=== PATIENT | female | born 1955 | race Caucasian/White ===

== ENCOUNTER 2017-09-20 18:46 | Emergency (ER) | payer OTHER ==
[2017-09-20] MEDS ORDERED: NORCO 5/325 MG PO ONE (20:41)
[2017-09-20] MEDS ORDERED: NORCO 5/325 MG ONE (20:45)
--- NOTE | 2017-09-20 20:47 | ERPHSYRPT ---
- History of Present Illness Time Seen by Provider: 09/20/17 20:35 Source: patient Exam Limitations: no limitations Patient Subjective Stated Complaint: Left ankle pain after falling in yard. Triage Nursing Assessment: Pt presents to the ED with complaints of left ankle pain after falling. Pt states she fell on a brick in her yard, swelling noted to lateral portion of left ankle. Pt states she iced affected area immediately. Distal pulses present and bounding. Abrasion noted to right knee and right lower leg, pt denies pain to right leg. Physician History: ABOUT 6 HOURS AGO IN HER [id number] PT TRIPPED ON A STONE AND FELL WITH RESULTANT PAIN IN THE LEFT ANKLE AND RIGHT LEG. PT DENIES NUMBNESS OF THE FEET, BACK PAIN, NECK PAIN, CHEST PAIN, ABDOMINAL PAIN. Allergies/Adverse Reactions: metronidazole [From Flagyl] Allergy (Intermediate, Verified 09/20/17 19:52) Hives Home Medications: Alprazolam 1 mg [Xanax 1 mg] 1 mg PO BID 09/20/17 [History] Aspirin 81 gm Chew [Baby Aspirin 81 mg Chew] 81 mg PO DAILY 09/20/17 [ History] Atorvastatin Calcium [Atorvastatin Calcium] 40 mg PO DAILY 09/20/17 [History] Doxepin HCl [Doxepin HCl] 10 mg PO DAILY 09/20/17 [History] Levothyroxine Sodium [Levothyroxine Sodium] 50 mcg PO DAILY 09/20/17 [History] Lisinopril [Lisinopril] 10 mg PO DAILY 09/20/17 [History] Metoprolol Succinate [Metoprolol Succinate] 25 mg PO DAILY 09/20/17 [History] Omeprazole 40 mg PO BID 09/20/17 [History] Paroxetine HCl [Paroxetine HCl] 30 mg PO DAILY 09/20/17 [History] Hx Tetanus, Diphtheria Vaccination/Date Given: No Hx Influenza Vaccination/Date Given: Yes Hx Pneumococcal Vaccination/Date Given: No Immunizations Up to Date: No - Review of Systems Cardiac: No Chest Pain Abdominal/Gastrointestinal: No Abdominal Pain Musculoskeletal: Other (LEFT ANKLE PAIN; RIGHT LEG PAIN.), No Back Pain, No Neck Pain All Other Systems: Reviewed and Negative - Past Medical History Pertinent Past Medical History: Yes Neurological History: No Pertinent History ENT History: No Pertinent History Cardiac History: Coronary Artery Disease, Hypertension Respiratory History: No Pertinent History Endocrine Medical History: No Pertinent History Musculoskeletal History: Degenerative Disk Disease GI Medical History: No Pertinent History History: No Pertinent History Psycho-Social History: Anxiety, Depression, Panic Disorder Other Medical History: Sciatica, Insomnia - Past Surgical History Past Surgical History: Yes Neuro Surgical History: Neurological Surgery Cardiac: No Pertinent History Respiratory: No Pertinent History Gastrointestinal: Hemorrhoidectomy Genitourinary: No Pertinent History Musculoskeletal: No Pertinent History Female Surgical History: Hysterectomy, Tubal Ligation Other Surgical History: Sinus surgery x4 - Social History Smoking Status: Never smoker Exposure to second hand smoke: Yes Drug Use: none Patient Lives Alone: No - Female History Hx Now: No - Nursing Vital Signs Nursing Vital Signs: Initial Vital Signs Temperature 98.5 F 09/20/17 19:42 Pulse Rate 92 H 09/20/17 19:42 Respiratory Rate 16 09/20/17 19:42 Blood Pressure 156/90 09/20/17 19:42 O2 Sat by Pulse Oximetry 96 09/20/17 19:42 Pain Scale Pain Intensity 0 - Kathleen Coma Score Best Eye Response ([place]): (4) open spontaneously Best Verbal Response ([place]): (5) oriented Best Motor Response ([place]): (6) obeys commands Kathleen Total: 15 - Physical Exam General Appearance: alert Head Injury: no evidence of injury Eye Exam: PERRL/EOMI ENT Exam: airway nml, nml ext.inspection, hearing grossly normal Neck Exam: trachea midline, full range of motion, No tenderness Respiratory/Chest Exam: normal breath sounds Cardiovascular Exam: normal heart sounds Gastrointestinal Exam: soft, normal bowel sounds Back Exam: normal range of motion, No vertebral tenderness Extremity Exam: normal range of motion, swelling ( LEFT ANKLE LATERALLY HAS MILD EDEMA AND TENDERNESS; ALL TOES OF BOTH FEET HAVE GOOD SENSATION, ROM AND CAPILLARY REFILL.) Neurologic Exam: alert, cooperative, sensation nml, No motor deficits, No motor weakness Skin Exam: abrasion (MILD TENDERNESS OVER ABRASIONS ON PROXIMAL LEFT QUIROZ) SpO2 Interpretation: normal SpO2: 96 Oxygen Delivery: Room Air - Course Nursing assessment & vital signs reviewed: Yes - Radiology Exams Left Ankle X-ray Interpretation: Teleradiologist Report (STS. NO FRACTURE.) Right Lower Leg X-ray Interpretation: Teleradiologist Report, No Fracture Ordered Tests: Active Orders 24 hr Category Date Time Status Saul Bandage Application -[facility] STAT Care 09/20/17 20:41 Active Crutches STAT Care 09/20/17 20:41 Active ANKLE (3 VIEWS) Stat Exams 09/20/17 20:42 Taken LOWER LEG Stat Exams 09/20/17 20:42 Taken Medication Summary Discontinued Medications Generic Name Dose Route Start Last Admin Trade Name Freq PRN Reason Stop Dose Admin Hydrocodone Bitart/Acetaminophen 1 tab 09/20/17 20:41 09/20/17 20:45 [place] 5/325 Mg PO 09/20/17 20:42 1 tab STAT ONE Administration Hydrocodone Bitart/Acetaminophen Confirm 09/20/17 20:45 [place] 5/325 Mg Administered 09/20/17 20:46 Dose 1 tab .ROUTE .STK-MED ONE - Departure Time of Disposition: 02:25 Departure Disposition: Home Clinical Impression: ABRASION/CONTUSION OF RIGHT LEG, SPRAIN OF LEFT ANKLE Condition: Stable Critical Care Time: No Referrals: LOKI SPRINGER MD [Primary Care Provider] - Instructions: Ankle Sprain Additional Instructions: FOLLOW UP WITH PRIVATE DOCTOR TOMORROW. ELEVATE LEFT ANKLE ABOVE HEART LEVEL FOR 24 HOURS. SAUL WRAP TO LEFT ANKLE FOR 4 DAYS. NO WEIGHT BEARING ON LEFT FOOT FOR 4 DAYS. USE CRUTCHES FOR 2 WEEKS. Prescriptions: Naproxen [Naprosyn] 500 mg PO [id number] PRN #20 tablet PRN Reason: Pain
[2017-09-21 02:42] VITALS: BP 118/81; PULSE 80; O2SAT 98
--- NOTE | 2017-09-21 09:46 | XRAY ---
Indication: Pain and swelling following fall. Comparison: None 3 views of the left ankle obtained demonstrates anterior lateral soft tissue swelling and small plantar heel spur. No bony, articular, or soft tissue abnormalities. Comment: Preliminary interpretation was made by [facility]. No discrepancy.
--- NOTE | 2017-09-21 09:46 | XRAY ---
Indication: Pain and swelling following fall. Comparison: None 2 views of the right lower leg obtained. No bony, articular, or soft tissue abnormalities. Comment: Preliminary interpretation was made by [facility]. No discrepancy.
== END 2017-09-21 02:41 | disposition home or self-care (01) ==
LOC: ED 18:46
DX: S93.402A Sprain of unspecified ligament of left ankle, initial encounter (principal); M25.572 Pain in left ankle and joints of left foot; S80.11XA Contusion of right lower leg, initial encounter; W01.0XXA Fall on same level from slipping, tripping and stumbling without subsequent striking against object, initial encounter; Z79.899 Other long term (current) drug therapy
CPT/HCPCS: 73590; 73610; 99282; A9270-GY

== ENCOUNTER 2021-11-27 01:04 | Emergency (ER) | payer MEDICARE ==
[2021-11-27] MEDS ORDERED: SUBLIMAZE 100 MCG/2 ML IV ONE (01:29)
[2021-11-27] MEDS ORDERED: Sodium Chloride 0.9% 1000 ML 1,000 ML IV STA (01:29)
[2021-11-27] MEDS ORDERED: TORAdol 30 mg Injection IV ONE (01:32)
--- NOTE | 2021-11-27 01:33 | ERPHSYRPT ---
- History of Present Illness Time Seen by Provider: 11/27/21 01:30 Historian: patient Exam Limitations: no limitations Patient Subjective Stated Complaint: pt states "I was watching TV and this pain just started out of no where. I had a scan 3 years ago and was told I had kidney stones in my kidney." Triage Nursing Assessment: pt ambulated into the er; pt is axo x4; c/o rt flank pain; pt states 8/10 pain to rt flank region; pt states "pressure in vagina"; pt c/o nausea; abd is round, soft, non tender; hyperactive bowel sounds; pt states diarrhea but has hx of IBS; hypertensive Physician History: pt states "I was watching TV and this pain just started out of no where. I had a scan 3 years ago and was told I had kidney stones in my kidney." c/o rt flank pain; pt states 8/10 pain to rt flank region; pt states "pressure in vagina"; pt c/o nausea; Timing/Duration: today Activities at Onset: none Quality: cramping Abdominal Pain Onset Location: RLQ, flank Severity of Pain-Max: moderate Severity of Pain-Current: moderate Modifying Factors: Improves With: nothing Associated Symptoms: nausea Allergies/Adverse Reactions: metronidazole [From Flagyl] Allergy (Intermediate, Verified 11/27/21 01:11) Hives Home Medications: ALPRAZolam 1 MG [Xanax 1 mg] 0.5 mg PO BID 09/20/17 [History] Levothyroxine Sodium 50 mcg PO DAILY 09/20/17 [History] Metoprolol Succinate 25 mg PO DAILY 09/20/17 [History] Omeprazole 40 mg PO DAILY 09/20/17 [History] PARoxetine HCL [Paroxetine HCl] 20 mg PO DAILY 09/20/17 [History] Amlodipine Besylate [Norvasc] 2.5 mg PO DAILY 11/27/21 [History] Buspirone HCl 5 mg [Buspar 5 mg] 10 mg PO TID 11/27/21 [History] Cholecalciferol (Vitamin D3) [Vitamin D3] 2,000 mcg PO DAILY 11/27/21 [History] Loratadine 10 mg [Claritin 10 mg] 10 mg PO DAILY 11/27/21 [History] Valsartan 80 mg PO DAILY 11/27/21 [History] Hx Tetanus, Diphtheria Vaccination/Date Given: No Hx Influenza Vaccination/Date Given: Yes Hx Pneumococcal Vaccination/Date Given: No Travel Risk - International Travel Have you traveled outside of the country in past 3 weeks: No - Coronavirus Screening Are you exhibiting any of the following symptoms?: No Close contact with a COVID-19 positive Pt in past 14-21 Days: No - Vaccine Status Have you recieved a Covid-19 vaccination: Yes Commodity Management Specialist: Moderna - Vaccination Dates Date of 2cond Vaccination (if applicable): unknown - Review of Systems Constitutional: No Fever, No Chills Eyes: No Symptoms Ears, Nose, & Throat: No Symptoms Respiratory: No Cough, No Dyspnea Cardiac: No Chest Pain, No Edema, No Syncope Abdominal/Gastrointestinal: No Abdominal Pain, No Nausea, No Vomiting, No Diarrhea Genitourinary Symptoms: Flank Pain, No Dysuria Musculoskeletal: No Back Pain, No Neck Pain Skin: No Rash Neurological: No Dizziness, No Focal Weakness, No Sensory Changes Psychological: No Symptoms Endocrine: No Symptoms All Other Systems: Reviewed and Negative - Past Medical History Pertinent Past Medical History: Yes Neurological History: No Pertinent History ENT History: No Pertinent History Cardiac History: Coronary Artery Disease, Hypertension Respiratory History: No Pertinent History Endocrine Medical History: No Pertinent History Musculoskeletal History: Degenerative Disk Disease GI Medical History: No Pertinent History History: No Pertinent History Psycho-Social History: Anxiety, Depression, Panic Disorder Female Reproductive Disorders: No Pertinent History Other Medical History: Sciatica, Insomnia - Past Surgical History Past Surgical History: Yes Neuro Surgical History: Neurological Surgery Cardiac: No Pertinent History Respiratory: No Pertinent History Gastrointestinal: Hemorrhoidectomy Genitourinary: No Pertinent History Musculoskeletal: No Pertinent History Female Surgical History: Hysterectomy, Tubal Ligation Other Surgical History: Sinus surgery x4 - Social History Smoking Status: Never smoker Exposure to second hand smoke: Yes Drug Use: none Patient Lives Alone: No - Nursing Vital Signs Nursing Vital Signs: Initial Vital Signs Temperature 97 F 11/27/21 01:11 Pulse Rate 76 11/27/21 01:11 Respiratory Rate 16 11/27/21 01:11 Blood Pressure 165/82 11/27/21 01:11 O2 Sat by Pulse Oximetry 97 11/27/21 01:11 Pain Scale Pain Intensity 2 - Physical Exam General Appearance: no apparent distress, alert Eye Exam: PERRL/EOMI, eyes nml inspection Ears, Nose, Throat Exam: normal ENT inspection, pharynx normal, moist mucous membranes Neck Exam: normal inspection, non-tender, supple, full range of motion Respiratory Exam: normal breath sounds, lungs clear, No respiratory distress Cardiovascular Exam: regular rate/rhythm, normal heart sounds Gastrointestinal/Abdomen Exam: soft, tenderness (RLQ), No mass Back Exam: normal inspection, normal range of motion, No CVA tenderness, No vertebral tenderness Extremity Exam: normal inspection, normal range of motion, pelvis stable Neurologic Exam: alert, oriented x 3, cooperative, normal mood/affect, nml cerebellar function, sensation nml, No motor deficits Skin Exam: normal color, warm, dry SpO2: 97 - Course Nursing assessment & vital signs reviewed: Yes - CT Exams Abdomen/Pelvis CT Interpretation: Tele-radiologist Report (2 mm UVJ stone) Ordered Tests: Active Orders 24 hr Category Date Time Status ABDOMEN AND PELVIS W/0 CONTRAS [CT] Stat Exams 11/27/21 01:29 Taken CBC W DIFF Stat Lab 11/27/21 01:45 Completed CMP Stat Lab 11/27/21 01:45 Completed UA W/RFX CULTURE Stat Lab 11/27/21 03:24 Ordered Medication Summary Discontinued Medications Generic Name Dose Route Start Last Admin Trade Name Juan C PRN Reason Stop Dose Admin Fentanyl Citrate 50 mcg 11/27/21 01:29 11/27/21 01:33 Fentanyl Citrate 100 Mcg/2 Ml* Vial IV 11/27/21 01:30 Not Given STAT ONE Sodium Chloride 1,000 mls @ 999 mls/hr 11/27/21 01:29 11/27/21 02:57 Sodium Chloride 0.9% 1000 Ml IV 11/27/21 02:29 Infused .Q1H1M STA Infusion Sodium Chloride Confirm 11/27/21 01:36 Sodium Chloride 0.9% 1000 Ml Administered 11/27/21 01:37 Dose 1,000 mls @ ud .ROUTE .STK-MED ONE Ketorolac Tromethamine 30 mg 11/27/21 01:32 11/27/21 01:36 Ketorolac Tromethamine 30 Mg/Ml Inj IV 11/27/21 01:33 30 mg STAT ONE Administration Ketorolac Tromethamine Confirm 11/27/21 01:35 Ketorolac Tromethamine 30 Mg/Ml Inj Administered 11/27/21 01:36 Dose 30 mg .ROUTE .STK-MED ONE Ketorolac Tromethamine Confirm 11/27/21 03:00 Ketorolac Tromethamine 10 Mg Tablet Administered 11/27/21 03:01 Dose 20 mg .ROUTE .STK-MED ONE Ketorolac Tromethamine 20 mg 11/27/21 03:15 11/27/21 03:05 Ketorolac Tromethamine 10 Mg Tablet PO 12/02/21 03:14 20 mg Q6H THOM Administration Tamsulosin HCl 0.4 mg 11/27/21 03:00 11/27/21 03:01 Tamsulosin Hcl 0.4 Mg Cap PO 11/27/21 03:01 0.4 mg STAT ONE Administration Tamsulosin HCl Confirm 11/27/21 02:59 Tamsulosin Hcl 0.4 Mg Cap Administered 11/27/21 03:00 Dose 0.4 mg .ROUTE .[facility] ONE Lab/Rad Data: Laboratory Result Diagrams 11/27/21 01:45 11/27/21 01:45 Laboratory Results 11/27/21 11/27/21 Range/Units 01:45 01:45 WBC 8.9 (4.0-10.5) x10^3/uL RBC 4.36 (4.1-5.4) x10^6/uL Hgb 13.0 (12.0-16.0) g/dL Hct 39.0 (35-47) % MCV 89.4 (78-100) fL MCH 29.8 (26-32) pg MCHC 33.3 (32-36) g/dL RDW 13.6 (11.5-14.0) % Plt Count 175 (150-450) x10^3/uL MPV 12.3 H (7.5-11.0) fL Gran % 55.5 (36.0-66.0) % Immature Gran % (Auto) 0.5 H (0.00-0.4) % Nucleat RBC Rel Count 0.0 (0.00-0.1) % Eos # (Auto) 0.25 (0-0.5) x10^3/uL Immature Gran # (Auto) 0.04 H (0.00-0.03) x10^3u/L Absolute Lymphs (auto) 2.90 (1.0-4.6) x10^3/uL Absolute Monos (auto) 0.72 (0.0-1.3) x10^3/uL Absolute Nucleated RBC 0.00 (0.00-0.01) x10^3u/L Lymphocytes % 32.8 (24.0-44.0) % Monocytes % 8.1 (0.0-12.0) % Eosinophils % 2.8 (0.00-5.0) % Basophils % 0.3 (0.0-0.4) % Absolute Granulocytes 4.91 (1.4-6.9) x10^3/uL Basophils # 0.03 (0-0.4) x10^3/uL Sodium 139 (137-145) mmol/L Potassium 3.5 (3.5-5.1) mmol/L Chloride 107 (98-107) mmol/L Carbon Dioxide 23 (22-30) mmol/L Anion Gap 13.3 (5-15) MEQ/L BUN 21 H (7-17) mg/dL Creatinine 0.70 (0.52-1.04) mg/dL Estimated GFR > 60.0 ML/MIN Glucose 134 H (74-106) mg/dL Calcium 9.2 (8.4-10.2) mg/dL Total Bilirubin 0.70 (0.2-1.3) mg/dL AST 34 (14-36) U/L ALT 31 (0-35) U/L Alkaline Phosphatase 100 (38-126) U/L Serum Total Protein 6.1 L (6.3-8.2) g/dL Albumin 3.7 (3.5-5.0) g/dL - Progress Progress: improved, pain not gone completely Counseled pt/family regarding: lab results, diagnosis, need for follow-up, rad results - Departure Departure Disposition: Home Clinical Impression: Ureteral stone with hydronephrosis, Right distal ureteral calculus Condition: Stable Critical Care Time: Yes Critical Care Time(excluding separately billable procedures): Critical 30-74 mins Referrals: LOKI SPRINGER MD [Primary Care Provider] - Follow up/PCP as directed Instructions: Kidney Stones (DC), Flank Pain Additional Instructions: Discharge/Care Plan GARRICKRADHA NICHOLAS was seen on 11/27/21 in the Emergency Room. The patient was counseled regarding Diagnosis,Lab results, Imaging studies, need for follow up and when to return to the Emergency Room. Prescriptions given: Discharge Note I have spoken with the patient and/or caregivers. I have explained the patient's condition, diagnosis and treatment plan based on the information available to me at this time. I have answered the patient's and/or caregiver's questions and addressed any concerns. The patient and/or caregivers have as good understanding of the patient's diagnosis, condition and treatment plan as can be expected at this point. The vital signs have been stable. The patient's condition is stable and appropriate for discharge from the emergency department. The patient will pursue further outpatient evaluation with the primary care physician or other designated or consulting physician as outlined in the dischar ge instructions. The patient and/or caregivers are agreeable to this plan of care and follow-up instructions have been explained in detail. The patient and/or caregivers have received these instruction. The patient/and or caregivers are aware that any significant change in condition or worsening of symptoms should prompt an immediate return to this or the closest emergency department or call 911. GARRICKRADHA NICHOLAS was seen on 11/27/21 n the Emergency Room. At that time you were treated for an emergent condition, during your visit Laboratory, Radiology and/or other procedures may have been ordered. It is very important that you follow-up with your Primary Care Physician LOKI SPRINGER within the next 24-48 hours to review your Emergency Room visit and the final results of testing that was ordered. Some test results such as Urine Cultures, Blood Cultures, and other cultures if ordered will not be finalized for 24-48 hours. If you do not have a Primary Care Provider please call the medical records department at [phone] ext [phone] to obtain a copy of your results or you may sign into our patient portal to obtain these results by visiting us @ [email or web address] and completing the following steps: 1. Click on the Patient Portal link 2. Click the Patient Self Enrollment Link to complete the enrollment form and entering your 3. Once the enrollment form is completed you will receive an email with a temporary ID and password at the email address you provided. 4. Next choose a user name and password. Your user name must be at least 4 characters long and your password must be at least 4 characters long. 5. Choose a security question from the list and provide your answer to the question. If you already have signed into the Health Portal you may access your Health Care Information 29/01 by the following steps: 1. Login to our website @ [email or web address] 2. Enter your original user name and password. FAQS The [facility] Health Portal is an online tool that contains your Lab Results, Ra diology Reports, Visit History, Discharge Instructions and Health Summary Lab and Radiology Results will not be available for 72 hours on the portal. The Portal is a secure site, passwords are encryted and URLs are re-written so they cannot be copied and pasted. You and authorized family members are the only ones who can access your Portal. Also there is a timeout feature that protects your information if you leave the Portal page open. If you have technical difficulty please use the Contact Us link on the page this will allow you to submit any questions you have regarding the Portal or you may contact the Medical Record Department at [phone] ext [phone]. Toradol 10 mg PO TID for 5 days Rx given Prescriptions: Tamsulosin HCl 0.4 mg [Flomax 0.4 MG] 0.4 mg PO DAILY #30 cap
[2021-11-27] MEDS ORDERED: TORAdol 30 mg Injection ONE (01:35)
[2021-11-27] MEDS ORDERED: Sodium Chloride 0.9% 1000 ML 1,000 ML ONE (01:36)
[2021-11-27 01:48] LABS: Absolute Neutrophil Ct (ANC) 4.91 x10^3/uL (1.4-6.9); Basophil (Absolute #) 0.03 x10^3/uL (0-0.4); Eosinophil % 2.8 % (0.00-5.0); Eosinophil (Absolute #) 0.25 x10^3/uL (0-0.5); Lymphocytes % 32.8 % (24.0-44.0); Mean Cell Volume 89.4 fL (78-100); Mean Corpuscular Hemoglobin 29.8 pg (26-32); Mean Corpuscular Hgb Concent. 33.3 g/dL (32-36); Mean Platelet Volume 12.3 fL (7.5-11.0); Monocyte (Absolute #) 0.72 x10^3/uL (0.0-1.3); Monocytes % 8.1 % (0.0-12.0); Neutrophil % 55.5 % (36.0-66.0); Platelet Count 175 x10^3/uL (150-450); Red Blood Count 4.36 x10^6/uL (4.1-5.4); Red Cell Distribution Width 13.6 % (11.5-14.0); White Blood Count 8.9 x10^3/uL (4.0-10.5)
[2021-11-27 01:58] LABS: ALBUMIN 3.7 g/dL (3.5-5.0); ALKALINE PHOSPHATASE 100 U/L (38-126); ANION GAP 13.3 MEQ/L (5-15); BLOOD UREA NITROGEN 21 mg/dL (7-17); CHLORIDE 107 mmol/L (98-107); Calcium 9.2 mg/dL (8.4-10.2); Carbon Dioxide 23 mmol/L (22-30); EST GLOMERULAR FILTRATION RATE > 60.0 ML/MIN; Glucose 134 mg/dL (74-106); Potassium 3.5 mmol/L (3.5-5.1); SGOT/AST 34 U/L (14-36); SGPT/ALT 31 U/L (0-35); SODIUM 139 mmol/L (137-145); Total Protein 6.1 g/dL (6.3-8.2)
[2021-11-27] MEDS ORDERED: Flomax 0.4 MG ONE (02:59)
[2021-11-27] MEDS ORDERED: Flomax 0.4 MG PO ONE (03:00)
[2021-11-27] MEDS ORDERED: TORAdol 10 MG TABLET ONE (03:00)
[2021-11-27] MEDS ORDERED: TORAdol 10 MG TABLET PO SCH (03:15)
[2021-11-27 03:26] VITALS: BP 136/72; PULSE 88
[2021-11-27 03:33] VITALS: O2SAT 97
[2021-11-27 04:41] LABS: Appearance CLEAR (CLEAR); Bilirubin NEGATIVE (NEGATIVE); Dipstick done @ ? MAIN LAB; Glucose NEGATIVE (NEGATIVE); Ketones NEGATIVE (NEGATIVE); Nitrite NEGATIVE (NEGATIVE); Ph 5.5 (5-6); Protein,Urine Dip TRACE (Negative); RBC LARGE Ery/ul (0-5); Specific Gravity >=1.030 (1.005-1.025); Urobilinogen 0.2 mg/dL (0-1)
[2021-11-27 04:43] LABS: Mucus SLIGHT /HPF (NEGATIVE)
[2021-11-27 04:44] LABS: RBC >101 /HPF (0-2); Urine Cultured Indicated? NO
--- NOTE | 2021-11-27 08:31 | XRAY ---
Indication: Right flank pain. History kidney stone. Multiple contiguous axial images obtained through the abdomen and pelvis without contrast. Comparison: February 07, 2010. Lung bases again demonstrates tiny right lower lobe and new lingula calcified granulomas. No infiltrate or effusion. Heart not enlarged. Noncontrasted stomach and bowel loops appear nonobstructed. Appendectomy and hysterectomy reported. New 2-3 mm distal right ureter calculus approximately 2-3 cm proximal to the UVJ. Proximal right ureter is slightly prominent along with mild hydronephrosis and minimal perinephric stranding consistent with obstructive uropathy. Additional bilateral renal punctate calculi. Remaining liver, gallbladder, pancreas, spleen, adrenal glands, kidneys, ureters, and bladder are unremarkable for noncontrast exam. Minimal aortoiliac calcifications without AAA. Osseous structures intact with mild degenerative changes throughout the spine. Impression: 1. New 2-3 mm distal right ureter calculus producing obstructive uropathy as detailed. Additional bilateral renal micro-calculi. 2. Incidental degenerative spondylosis and old granulomatous disease. Comment: Preliminary interpretation made by [facility]. No critical discrepancy.
== END 2021-11-27 03:26 | disposition home or self-care (01) ==
LOC: ED 01:04
DX: N13.2 Hydronephrosis with renal and ureteral calculous obstruction (principal); Z87.442 Personal history of urinary calculi; R10.31 Right lower quadrant pain; I10 Essential (primary) hypertension; Z79.899 Other long term (current) drug therapy
CPT/HCPCS: 36415; 74176; 80053; 81015; 85025; 96360; 96374; 99284; J1885; A9270-GY

== ENCOUNTER 2022-04-12 13:59 | Day surgery (SDC) | payer MEDICARE ==
--- NOTE | 2022-04-12 16:54 | XRAY ---
Indication: Bilateral SI joint injection. Intraoperative fluoroscopy provided for 16 seconds. 5 digital spot image submitted for interpretation images demonstrates posterior needle tip projecting over the left and right SI joints. Correlate with intraoperative findings/report.
--- NOTE | 2022-04-12 16:57 | XRAY ---
16 seconds of fluoroscopy was used in surgery for bilateral SI joint injections.
== END 2022-04-12 16:15 | disposition home or self-care (01) ==
LOC: SDC-PAIN 13:59
PROVIDERS: ATTEND Psychiatry & Neurology Pain Medicine
DX: M46.1 Sacroiliitis, not elsewhere classified (principal); Z79.899 Other long term (current) drug therapy
CPT/HCPCS: 27096; 72202; 77002; G0260

== ENCOUNTER 2023-04-11 08:32 | Day surgery (SDC) | payer MEDICARE ==
[2023-04-11] MEDS ORDERED: Sodium Chloride 0.9(Preservative Free) 10 ML IJ ONE (08:33)
[2023-04-11] MEDS ORDERED: LIDOCAINE HCL 1% 50 MG/5 ML VL PF IJ ONE (08:33)
[2023-04-11] MEDS ORDERED: Depo-Medrol 40 MG/ML IM ONE (08:33)
[2023-04-11] MEDS ORDERED: DIPRIVAN 200 MG/20 ML IV ONE (09:39)
[2023-04-11] MEDS ORDERED: Lactated Ringers 1,000 ML IV ONE (10:05)
--- NOTE | 2023-04-11 12:08 | XRAY ---
Indication: Lumbar JERRY. Intraoperative fluoroscopy provided for 14 seconds. 3 digital spot image submitted for interpretation demonstrates posterior needle tip projecting lumbosacral junction interspace. Small amount of contrast injected for needle tip placement. Correlate with intraoperative findings/report.
--- NOTE | 2023-04-11 12:12 | XRAY ---
14 seconds of fluoroscopy was used in surgery for a lumbar JERRY.
== END 2023-04-11 10:10 | disposition home or self-care (01) ==
LOC: SDC-PAIN 08:32
PROVIDERS: ATTEND Psychiatry & Neurology Pain Medicine
DX: M54.16 Radiculopathy, lumbar region (principal)
CPT/HCPCS: 62323; 72100; 77003; J1030; J2001; J2704; Q9966

== ENCOUNTER 2023-10-28 19:21 | Emergency (ER) | payer MEDICARE ==
[2023-10-28 19:48] VITALS: RESP 18; TEMP 97.9
--- NOTE | 2023-10-28 19:58 | ERPHSYRPT ---
- History of Present Illness Time Seen by Provider: 10/28/23 19:50 Historian: patient Patient Subjective Stated Complaint: LUQ pain x2 months, pt has seen PCP for this issue and was prescribed Creon for "spastic colon." but patient is not taking it d/t expense, pt has GI appt on November 11 but states she couldn't wait that long Triage Nursing Assessment: pt ambulatory to bed by self with steady gait, pt alert and oriented x3, skin pwd, pt c/o LUQ pain x2 months, pt has had BM today, pt states my stomach feels so swollen, abdomen soft and nontender Physician History: This is a 68-year-old white female patient who has had left upper quad abdominal pain for 2 months. She is being followed as an outpatient and has a gastroenterology appointment on 11/12/2023. She had been placed on Creon. She is not taking that medication because it is too expensive. 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 Patient has a history of depression, hypertension, gastroesophageal reflux disease, hypothyroidism and anxiety issues. Patient denies chest pain. Patient denies shortness of breath. Patient reports her pain to be 3 out of 10 level of intensity Timing/Duration: other (Chronic for over 2 months) Activities at Onset: none Quality: pressure Abdominal Pain Onset Location: LUQ Pain Radiation: no radiation Severity of Pain-Max: mild Severity of Pain-Current: mild Modifying Factors: Improves With: nothing Associated Symptoms: denies symptoms Previous symptoms: same symptoms as today, no recent treatment Allergies/Adverse Reactions: metronidazole [From Flagyl] Allergy (Intermediate, Verified 10/28/23 19:32) Hives cephalexin [From Keflex] Allergy (Verified 10/28/23 19:32) doxycycline Allergy (Verified 10/28/23 19:32) erythromycin base Allergy (Verified 10/28/23 19:32) morphine Allergy (Verified 10/28/23 19:32) Sulfa (Sulfonamide Antibiotics) Allergy (Verified 10/28/23 19:32) Home Medications: ALPRAZolam 1 MG [Xanax 1 mg] 0.5 mg PO BID 09/20/17 [History] Levothyroxine Sodium 50 mcg PO DAILY 09/20/17 [History] Metoprolol Succinate 25 mg PO DAILY 09/20/17 [History] Omeprazole 40 mg PO DAILY 09/20/17 [History] Amlodipine Besylate [Norvasc] 2.5 mg PO DAILY 11/27/21 [History] Cholecalciferol (Vitamin D3) [Vitamin D3] 1,000 mcg PO DAILY 11/27/21 [History] Loratadine 10 mg [Claritin 10 mg] 10 mg PO DAILY 11/27/21 [History] Valsartan 80 mg PO BID 11/27/21 [History] Atorvastatin Calcium [Lipitor 40Mg] 40 mg PO HS 10/28/23 [History] Azelastine Nasal [Astelin Nasal] 2 sprays NS DAILY 10/28/23 [History] Venlafaxine HCl 37.5 mg [Effexor 37.5 mg] 37.5 mg PO UD 10/28/23 [History] Hx Tetanus, Diphtheria Vaccination/Date Given: No Hx Influenza Vaccination/Date Given: Yes Hx Pneumococcal Vaccination/Date Given: No Immunizations Up to Date: No Travel Risk - International Travel Have you traveled outside of the country in past 3 weeks: No - Emerging Infectious Disease Are you exhibiting symptoms associated with any current EIDs: Yes Symptoms: Abdominal Pain - Review of Systems Constitutional: No Symptoms Eyes: No Symptoms Ears, Nose, & Throat: No Symptoms Respiratory: No Symptoms Cardiac: No Symptoms Abdominal/Gastrointestinal: Abdominal Pain (Left upper quadrant) Genitourinary Symptoms: No Symptoms Musculoskeletal: No Symptoms Skin: No Symptoms Neurological: No Symptoms Psychological: No Symptoms Endocrine: No Symptoms Hematologic/Lymphatic: No Symptoms Immunological/Allergic: No Symptoms All Other Systems: Reviewed and Negative - Past Medical History Pertinent Past Medical History: Yes Neurological History: No Pertinent History ENT History: No Pertinent History Cardiac History: Coronary Artery Disease, High Cholesterol, Hypertension Respiratory History: No Pertinent History Endocrine Medical History: Hypothyroidism, Liver Disease Musculoskeletal History: Osteoarthritis GI Medical History: No Pertinent History History: No Pertinent History Psycho-Social History: Anxiety, Depression, Panic Disorder Female Reproductive Disorders: No Pertinent History Other Medical History: STATES ELEVATED LIVER ENZYMES AND FATTY LIVER. REPORTS 3 BLOCKAGES IN HEART BUT NO STENTS ALSO LEAKY VALVES. - Past Surgical History Past Surgical History: Yes Neuro Surgical History: Neurological Surgery Cardiac: Cardiac Catheterization Respiratory: No Pertinent History Gastrointestinal: Hemorrhoidectomy Genitourinary: No Pertinent History Musculoskeletal: No Pertinent History Female Surgical History: Hysterectomy, Tubal Ligation Other Surgical History: Sinus surgery x4 - Social History Smoking Status: Never smoker Exposure to second hand smoke: No Drug Use: none Patient Lives Alone: No - Nursing Vital Signs Nursing Vital Signs: Initial Vital Signs O2 Sat by Pulse Oximetry 95 10/28/23 19:37 Pain Scale Pain Intensity 0 - Physical Exam General Appearance: no apparent distress, alert, anxiety, obese Ears, Nose, Throat Exam: normal ENT inspection, moist mucous membranes Neck Exam: normal inspection, non-tender, supple, full range of motion Respiratory Exam: normal breath sounds, lungs clear, airway intact, No chest tenderness, No respiratory distress Cardiovascular Exam: regular rate/rhythm, normal heart sounds, normal peripheral pulses Gastrointestinal/Abdomen Exam: soft, normal bowel sounds, tenderness (Mild left upper quadrant discomfort to palpation), guarding, No rebound Pelvic Exam: not done Rectal Exam: not done Back Exam: normal inspection, normal range of motion, No CVA tenderness, No vertebral tenderness Extremity Exam: normal inspection, normal range of motion, pelvis stable Neurologic Exam: alert, oriented x 3, cooperative, 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, normal mood/affect, nml cerebellar function, nml station & gait, sensation nml Skin Exam: normal color, warm, dry Lymphatic Exam: No adenopathy SpO2 Interpretation: normal SpO2: 98 O2 Delivery: Room Air - Course Nursing assessment & vital signs reviewed: Yes Ordered Tests: Active Orders 24 hr Category Date Time Status IV Insertion STAT Care 10/28/23 19:59 Active ABDOMEN AND PELVIS W/0 CONTRAS [CT] Stat Exams 10/28/23 19:59 Completed AMYLASE Stat Lab 10/28/23 20:10 Completed CBC W DIFF Stat Lab 10/28/23 20:10 Completed CMP Stat Lab 10/28/23 20:10 Completed LIPASE Stat Lab 10/28/23 20:10 Completed Lactic Acid Stat Lab 10/28/23 20:15 Completed Lactic Acid Stat Lab 10/28/23 22:23 Received UA W/RFX UR CULTURE Stat Lab 10/28/23 20:04 Completed Medication Summary Discontinued Medications Generic Name Dose Route Start Last Admin Trade Name Freq PRN Reason Stop Dose Admin Sodium Chloride 500 mls @ 500 mls/hr 10/28/23 20:00 10/28/23 22:18 Sodium Chloride 0.9% 500 Ml IV 10/28/23 20:59 Infused .Q1H ONE Infusion Sodium Chloride Confirm 10/28/23 20:15 Sodium Chloride 0.9% 500 Ml Administered 10/28/23 20:16 Dose 500 mls @ ud IV .STK-MED ONE Lab/Rad Data: Laboratory Result Diagrams 10/28/23 20:10 10/28/23 20:10 Laboratory Results 10/28/23 10/28/23 10/28/23 Range/Units 20:15 20:10 20:10 WBC 9.8 (4.0-10.5) x10^3/uL RBC 4.37 (4.1-5.4) x10^6/uL Hgb 12.9 (12.0-16.0) g/dL Hct 39.6 (35-47) % MCV 90.6 (78-100) fL MCH 29.5 (26-32) pg MCHC 32.6 (32-36) g/dL RDW 12.9 (11.5-14.0) % Plt Count 184 (150-450) x10^3/uL MPV 12.1 H (7.5-11.0) fL Gran % 65.9 (36.0-66.0) % Immature Gran % (Auto) 0.3 (0.00-0.4) % Nucleat RBC Rel Count 0.0 (0.00-0.1) % Eos # (Auto) 0.17 (0-0.5) x10^3/uL Immature Gran # (Auto) 0.03 (0.00-0.03) x10^3u/L Absolute Lymphs (auto) 2.37 (1.0-4.6) x10^3/uL Absolute Monos (auto) 0.71 (0.0-1.3) x10^3/uL Absolute Nucleated RBC 0.00 (0.00-0.01) x10^3u/L Lymphocytes % 24.3 (24.0-44.0) % Monocytes % 7.3 (0.0-12.0) % Eosinophils % 1.7 (0.00-5.0) % Basophils % 0.5 (0.0-0.4) % Absolute Granulocytes 6.43 (1.4-6.9) x10^3/uL Basophils # 0.05 (0-0.4) x10^3/uL Sodium 141 (135-145) mmol/L Potassium 4.5 (3.5-5.1) mmol/L Chloride 109 H (98-107) mmol/L Carbon Dioxide 28 (22-30) mmol/L Anion Gap 7.5 (5-15) MEQ/L BUN 21 H (7-17) mg/dL Creatinine 0.86 (0.52-1.04) mg/dL Estimated GFR 72.6 ML/MIN Glucose 107 H (74-106) mg/dL Lactic Acid 1.9 (0.4-2.0) Calcium 9.1 (8.4-10.2) mg/dL Total Bilirubin 0.70 (0.2-1.3) mg/dL AST 35 (14-36) U/L ALT 30 (0-35) U/L Alkaline Phosphatase 113 (38-126) U/L Serum Total Protein 6.3 (6.3-8.2) g/dL Albumin 3.8 (3.5-5.0) g/dL Amylase 63 (30-110) U/L Lipase 115 (23-300) U/L Urine Color (Yellow) Urine Appearance (Clear) Urine pH (4.6-8.0) Ur Specific Vernon (1.005-1.030) Urine Protein (Negative) Urine Glucose (UA) (Negative) mg/dL Urine Ketones (Negative) Urine Blood (Negative) Urine Nitrite (Negative) Urine Bilirubin (Negative) Urine Urobilinogen (0.2) mg/dL Ur Leukocyte Esterase (Negative) U Hyaline Cast (Auto) (0-2) /LPF Urine Microscopic RBC (0-5) /HPF Urine Microscopic WBC (0-5) /HPF Ur Epithelial Cells (None Seen) /HPF Urine Bacteria (None Seen) /HPF Urine Culture Reflexed (NO) 10/28/23 Range/Units 20:04 WBC (4.0-10.5) x10^3/uL RBC (4.1-5.4) x10^6/uL Hgb (12.0-16.0) g/dL Hct (35-47) % MCV (78-100) fL MCH (26-32) pg MCHC (32-36) g/dL RDW (11.5-14.0) % Plt Count (150-450) x10^3/uL MPV (7.5-11.0) fL Gran % (36.0-66.0) % Immature Gran % (Auto) (0.00-0.4) % Nucleat RBC Rel Count (0.00-0.1) % Eos # (Auto) (0-0.5) x10^3/uL Immature Gran # (Auto) (0.00-0.03) x10^3u/L Absolute Lymphs (auto) (1.0-4.6) x10^3/uL Absolute Monos (auto) (0.0-1.3) x10^3/uL Absolute Nucleated RBC (0.00-0.01) x10^3u/L Lymphocytes % (24.0-44.0) % Monocytes % (0.0-12.0) % Eosinophils % (0.00-5.0) % Basophils % (0.0-0.4) % Absolute Granulocytes (1.4-6.9) x10^3/uL Basophils # (0-0.4) x10^3/uL Sodium (135-145) mmol/L Potassium (3.5-5.1) mmol/L Chloride (98-107) mmol/L Carbon Dioxide (22-30) mmol/L Anion Gap (5-15) MEQ/L BUN (7-17) mg/dL Creatinine (0.52-1.04) mg/dL Estimated GFR ML/MIN Glucose (74-106) mg/dL Lactic Acid (0.4-2.0) Calcium (8.4-10.2) mg/dL Total Bilirubin (0.2-1.3) mg/dL AST (14-36) U/L ALT (0-35) U/L Alkaline Phosphatase (38-126) U/L Serum Total Protein (6.3-8.2) g/dL Albumin (3.5-5.0) g/dL Amylase (30-110) U/L Lipase (23-300) U/L Urine Color Yellow (Yellow) Urine Appearance Clear (Clear) Urine pH 5.5 (4.6-8.0) Ur Specific Vernon >=1.030 A (1.005-1.030) Urine Protein Trace A (Negative) Urine Glucose (UA) Negative (Negative) mg/dL Urine Ketones Negative (Negative) Urine Blood Negative (Negative) Urine Nitrite Negative (Negative) Urine Bilirubin Negative (Negative) Urine Urobilinogen 1.0 A (0.2) mg/dL Ur Leukocyte Esterase Negative (Negative) U Hyaline Cast (Auto) NONE SEEN (0-2) /LPF Urine Microscopic RBC 0-2 (0-5) /HPF Urine Microscopic WBC 6-10 A (0-5) /HPF Ur Epithelial Cells None Seen (None Seen) /HPF Urine Bacteria None Seen (None Seen) /HPF Urine Culture Reflexed NO (NO) - Progress Progress: improved, pain not gone completely, re-examined Progress Note: 10/28/23 19:57 My medical decision making and the assignment of moderate level of complexity in this patient's medical issue is based on review of the patient's past medical history, review the patient medication list, review of the patient drug allergy list, history present illness and physical findings on examination. The workup in this patient includes intravenous line placement, CBC, CMP, amylase, lipase, urinalysis, CT scan of the abdomen pelvis without contrast. Differential diagnosis includes pancreatitis, bowel obstruction, inflammatory bowel disease, perforated bowel enteritis 10/28/23 22:43 I interpreted the patient's laboratory data results. Based on the patient's laboratory data results, there is no evidence of any acute, emergent findings. CT scan of the abdomen pelvis without contrast was interpreted by the radiologist and I reviewed the impression. The impression states no acute intra-abdominal or intrapelvic findings. Counseled pt/family regarding: lab results, diagnosis, need for follow-up, rad results Medical Desision Making - Diagnostic Testing Diagnostic test were ordered, analyzed, and reviewed by me: Yes Radiological Interpretation: Reviewed by me, Teleradiologist Report - Risk of complications Low Risk: Low risk of morbidity from additional dx testing or treatment - Departure Departure Disposition: Home Clinical Impression: Chronic abdominal pain Condition: Stable Critical Care Time: No Additional Instructions: Drink plenty of fluids. Take your medications as prescribed. Keep your scheduled appointments. Call your primary care provider tomorrow, 10/29/2023 to make arrangements for follow-up appointment to be seen in the next 3 to 5 days.
[2023-10-28 20:14] LABS: Absolute Neutrophil Ct (ANC) 6.43 x10^3/uL (1.4-6.9); BASOPHIL % 0.5 % (0.0-0.4); Basophil (Absolute #) 0.05 x10^3/uL (0-0.4); Eosinophil % 1.7 % (0.00-5.0); Eosinophil (Absolute #) 0.17 x10^3/uL (0-0.5); Hematocrit 39.6 % (35-47); Hemoglobin 12.9 g/dL (12.0-16.0); IMMATURE GRAN # 0.03 x10^3u/L (0.00-0.03); IMMATURE GRAN % 0.3 % (0.00-0.4); Lymphocyte (Absolute #) 2.37 x10^3/uL (1.0-4.6); Lymphocytes % 24.3 % (24.0-44.0); Mean Cell Volume 90.6 fL (78-100); Mean Corpuscular Hemoglobin 29.5 pg (26-32); Mean Corpuscular Hgb Concent. 32.6 g/dL (32-36); Mean Platelet Volume 12.1 fL (7.5-11.0); Monocyte (Absolute #) 0.71 x10^3/uL (0.0-1.3); Monocytes % 7.3 % (0.0-12.0); Neutrophil % 65.9 % (36.0-66.0); Platelet Count 184 x10^3/uL (150-450); Red Blood Count 4.37 x10^6/uL (4.1-5.4); Red Cell Distribution Width 12.9 % (11.5-14.0); White Blood Count 9.8 x10^3/uL (4.0-10.5)
[2023-10-28] MEDS ORDERED: Sodium Chloride 0.9% 500 ML 500 ML IV ONE (20:15)
[2023-10-28] MEDS: Sodium Chloride 0.9% 500 ML 500 ML IV ONE (20:17)
[2023-10-28 20:18] LABS: ADD URINE CULTURE? NO (NO); Appearance Clear (Clear); Bacteria None Seen /HPF (None Seen); Bilirubin Negative (Negative); Blood Negative (Negative); Epithelial Cells None Seen /HPF (None Seen); Glucose, Urine Negative (Negative); Hyaline Casts NONE SEEN /LPF (0-2); Ketones Negative (Negative); Leukocyte Esterase Negative (Negative); Nitrite Negative (Negative); Ph 5.5 (4.6-8.0); Protein,Urine Dip Trace (Negative); RBC 0-2 /HPF (0-5); Specific Gravity >=1.030 (1.005-1.030)
[2023-10-28 20:58] LABS: ALBUMIN 3.8 g/dL (3.5-5.0); ANION GAP 7.5 MEQ/L (5-15); BILIRUBIN,TOTAL 0.7 mg/dL (0.2-1.3); Calcium 9.1 mg/dL (8.4-10.2); Creatinine 1 0.86 mg/dL (0.52-1.04); EST GLOMERULAR FILTRATION RATE 72.6 ML/MIN; Potassium 4.5 mmol/L (3.5-5.1); Total Protein 6.3 g/dL (6.3-8.2)
--- NOTE | 2023-10-28 22:01 | XRAY ---
CLINICAL HISTORY: ABD pain and distention COMPARISON: CT from 11/27/2021. TECHNIQUE: Axial CT scan of the abdomen and pelvis was performed without IV contrast. Coronal and sagittal reconstructive images were also obtained. One of the following dose reduction techniques were utilized for this exam: Automated exposure control, adjustment of the mA and/or kV according to patient size, use of iterative reconstruction. CTDI: 17.33 mGy, DLP: 843. 83 mGy-cm. FINDINGS: Scan through the lower chest reveals calcified granulomas in right lower lobe and lingula, laminar atelectasis in left lower lobe and mild fat tissue in the interventricular cardiac septum, without changes. Abdomen: The liver is normal in size with mild steatosis. No focal or diffuse parenchymal abnormality. The portal vein, intrahepatic biliary radicals and the bile ducts are normal. Millimetric calcified granulomas in spleen. The pancreas and adrenal glands are unremarkable. The kidneys are unremarkable. They are normal in size and shape. No hydronephrosis. Bilateral non-obstructive renal microlithiasis. The gallbladder is normal. No pericholecystic collection or radio dense calculi in the gall bladder. Fecal loaded right sided colon The ascending colon, the transverse colon, the descending colon, visualized small bowel loops are unremarkable. Duodenal diverticulum in second portion. There is no evidence of significant enlargement of the mesenteric or retroperitoneal lymph nodes. Pelvis: The urinary bladder is unremarkable. Diverticulosis in sigmoid colon, without signs of complication. Cecal appendix not visualized. Absent uterus. The pelvic vasculature is unremarkable. No evidence of pelvic lymphadenopathy. Moderate signs of lumbar spondylosis and convex right-sided lumbar scoliosis. Retrolisthesis grade I of L2 over L3. Isolated small sclerotic lesions, the largest in left iliac bone, consistent with bone islands. IMPRESSION: 1. No acute findings. 2. Right renal ectasia observed in previous CT scan is not visualized in the present CT. 3. No other relevant changes observed. Electronically Signed by: Mahesh Delarosa MD. (10/28/2023 21:57:12 EDT)
[2023-10-28 22:07] VITALS: PULSE 78
[2023-10-28] MEDS ORDERED: TORAdol 30 mg Injection ONE (22:46)
[2023-10-28] MEDS: TORAdol 30 mg Injection IV ONE (22:51)
[2023-10-28 23:02] VITALS: BP 137/82; O2SAT 97
== END 2023-10-28 23:21 | disposition home or self-care (01) ==
LOC: ED 19:21
DX: G89.29 Other chronic pain (principal); R10.12 Left upper quadrant pain; I10 Essential (primary) hypertension; E78.5 Hyperlipidemia, unspecified; Z79.899 Other long term (current) drug therapy
CPT/HCPCS: 36000; 36415; 74176; 80053; 81001; 82150; 83605; 83690; 85025; 96374; 96375; 99284; J1885

== ENCOUNTER 2023-12-19 09:01 | Day surgery (SDC) | payer MEDICARE ==
[2023-12-19] MEDS ORDERED: DIPRIVAN 200 MG/20 ML IV ONE (10:29)
--- NOTE | 2023-12-19 11:34 | XRAY ---
Indication: Bilateral L4-S1 MBB. Intraoperative fluoroscopy provided for 9 seconds. Single digital spot image submitted for interpretation demonstrates posterior needle tips projecting over the expected left and right L4-S1 nerve roots. Correlate with intraoperative findings/report.
--- NOTE | 2023-12-19 13:14 | XRAY ---
9 seconds of fluoroscopy was used in surgery for a bilateral L4-S1 MBB.
[2023-12-19] MEDS ORDERED: Lactated Ringers 1,000 ML IV ONE (15:02)
== END 2023-12-19 10:55 | disposition home or self-care (01) ==
LOC: SDC-PAIN 09:01
PROVIDERS: ATTEND Psychiatry & Neurology Pain Medicine
DX: M47.816 Spondylosis without myelopathy or radiculopathy, lumbar region (principal); E11.9 Type 2 diabetes mellitus without complications
CPT/HCPCS: 64493; 64494; 72020; 77002; 82947; J2704

== ENCOUNTER 2024-05-22 11:05 | Day surgery (SDC) | payer MEDICARE ==
[2024-05-22] MEDS ORDERED: Depo-Medrol 40 MG/ML IM ONE (11:06)
[2024-05-22] MEDS ORDERED: BUPIVACAINE 0.5% VIAL IJ ONE (11:06)
[2024-05-22] MEDS ORDERED: DIPRIVAN 200 MG/20 ML IV ONE (12:47)
--- NOTE | 2024-05-22 14:41 | XRAY ---
Indication: Bilateral L4-S1 MBB. Intraoperative fluoroscopy provided for 12 seconds. Single digital spot image submitted for interpretation demonstrates posterior needle tips projecting over expected left and right L4-S1 nerve roots. Correlate with intraoperative findings/report.
--- NOTE | 2024-05-22 14:45 | XRAY ---
12 seconds of fluoroscopy was used in surgery for a bilateral L4-S1 MBB.
== END 2024-05-22 13:15 | disposition home or self-care (01) ==
LOC: SDC-PAIN 11:05
PROVIDERS: ATTEND Psychiatry & Neurology Pain Medicine
DX: M47.816 Spondylosis without myelopathy or radiculopathy, lumbar region (principal)
CPT/HCPCS: 64493; 64494; 72020; 77002; J2704

== ENCOUNTER 2024-08-06 09:36 | Day surgery (SDC) | payer MEDICARE ==
[2024-08-06] MEDS ORDERED: LIDOCAINE HCL 1% AMPUL 5 ML IJ ONE (09:37)
[2024-08-06] MEDS ORDERED: BUPIVACAINE 0.5% VIAL IJ ONE (09:37)
[2024-08-06] MEDS ORDERED: Depo-Medrol 40 MG/ML IM ONE (09:37)
[2024-08-06] MEDS ORDERED: propofoL IV ONE (11:19)
--- NOTE | 2024-08-06 12:21 | XRAY ---
Indication: Right L4-S1 RFA. Intraoperative fluoroscopy provided for 19 seconds. 3 digital spot image submitted for interpretation demonstrates posterior needle tips projecting over expected right L4-S1 nerve roots. Correlate with intraoperative findings/report.
--- NOTE | 2024-08-06 12:50 | XRAY ---
19 seconds of fluoroscopy was used in surgery for a right L4-S1 RFA.
== END 2024-08-06 11:56 | disposition home or self-care (01) ==
LOC: SDC-PAIN 09:36
PROVIDERS: ATTEND Psychiatry & Neurology Pain Medicine
DX: M47.816 Spondylosis without myelopathy or radiculopathy, lumbar region (principal); E16.2 Hypoglycemia, unspecified
CPT/HCPCS: 64635; 64636; 72100; 77002; 82947; 99100; J2704

== ENCOUNTER 2024-08-13 09:40 | Day surgery (SDC) | payer MEDICARE ==
[2024-08-13] MEDS ORDERED: propofoL IV ONE (11:13)
--- NOTE | 2024-08-13 12:06 | XRAY ---
Indication: Left L4-S1 RFA. Intraoperative fluoroscopy provided for 17 seconds. 3 digital spot image submitted for interpretation demonstrates posterior needle tips projecting over expected left L4-S1 nerve roots. Correlate with intraoperative findings/report.
--- NOTE | 2024-08-13 12:56 | XRAY ---
17 seconds of fluoroscopy was used in surgery for a left L4-S1 RFA.
== END 2024-08-13 12:01 | disposition home or self-care (01) ==
LOC: SDC-PAIN 09:40
PROVIDERS: ATTEND Psychiatry & Neurology Pain Medicine
DX: M47.817 Spondylosis without myelopathy or radiculopathy, lumbosacral region (principal); E16.2 Hypoglycemia, unspecified
CPT/HCPCS: 72100; 77002; 82947; J2704

== ENCOUNTER 2024-10-17 06:33 | Day surgery (SDC) | payer MEDICARE ==
[2024-10-17] MEDS ORDERED: Versed 2 MG/2 ML Injection IV ONE (06:34)
[2024-10-17] MEDS ORDERED: SUBLIMAZE 100 MCG/2 ML IV ONE (06:34)
[2024-10-17] MEDS ORDERED: propofoL IV ONE (06:34)
[2024-10-17] MEDS ORDERED: PHENYLEPHRINE HCL IV ONE (06:34)
[2024-10-17] MEDS: Transderm Scop 1.5MG Patch TOP ONE (06:46)
[2024-10-17] MEDS: Decadron 4 MG PO ONE (06:47)
[2024-10-17] MEDS: Lactated Ringers 1,000 ML IV SCH (06:47)
[2024-10-17] MEDS: NEURONTIN PO ONE (06:47)
[2024-10-17] MEDS: Pepcid 20 MG VIAL IV ONE (06:47)
[2024-10-17] MEDS: TYLENOL EXTRA STRENGTH 500 MG PO ONE (06:47)
[2024-10-17] MEDS: celeBREX 100 MG PO ONE (06:47)
[2024-10-17] MEDS ORDERED: Lactated Ringers 1,000 ML IV ONE (07:00)
[2024-10-17] MEDS ORDERED: MARCAINE 0.25% PF/ EPI 1:200,000 ONE (07:00)
[2024-10-17] MEDS ORDERED: CLINDAMYCIN-D5W 900 MG/50 ML*** 900 MG/50 ML BAG IV ONE (08:17)
[2024-10-17] MEDS: CLINDAMYCIN-D5W 900 MG/50 ML*** 900 MG/50 ML BAG IV ONE (08:19)
[2024-10-17 10:24] VITALS: O2SAT 95
[2024-10-17 10:38] VITALS: RESP 18
[2024-10-17 10:42] VITALS: BP 124/78; PULSE 77; TEMP 97.8
--- NOTE | 2024-10-20 08:15 | OP ---
SURGERY DATE/TIME: 10/17/2024 [id number] PREOPERATIVE DIAGNOSIS: Torn right medial meniscus. POSTOPERATIVE DIAGNOSIS: Torn right medial meniscus. PROCEDURES: Arthroscopy of the right knee with partial medial meniscectomy. SURGEON: Otis Workman II, DO. ANESTHESIA: General. DESCRIPTION OF PROCEDURE AND FINDINGS: The patient was identified and informed consent was obtained. The patient was taken to the operative suite and placed in a supine position on the operating table, where the general anesthetic was administered. Once an appropriate level of anesthesia had been obtained, a tourniquet was placed high on the right thigh. The right lower extremity was then placed in the knee vail, prepped and draped in the usual sterile fashion. At this point, a standard time-out was taken. Following this, the leg was exsanguinated and the tourniquet elevated to 350 mmHg. A standard superomedial portal was created with an 11 blade. Trocar and cannula were placed in the joint. The joint was distended with the arthroscopic pump. Inferolateral portal was also created with an 11 blade, and the arthroscope was then placed in through a cannula. An 18-gauge spinal needle identified the level for the inferomedial portal and this was also created with an 11 blade. The knee was now inspected in a systematic fashion beginning at the suprapatellar pouch, where there were no loose bodies or synovial hypertrophy. The gutters were inspected. No loose bodies or synovial hypertrophy. The undersurface of the patella had very minimal to no chondromalacia changes noted, as was noted in the trochlear groove. The scope was placed into the medial compartment where a complex tear involving the middle and posterior horns of the medial meniscus was encountered. This was resected with the handheld biting instruments, and shaved to a smooth transition with the shaver. Patient did have a small area of chondromalacia where she had been ambulating on the tear for quite some time. This was debrided and incidental chondroplasty performed. At this point then, the scope was placed into the intercondylar notch where the anterior cruciate ligament was inspected and noted to be intact. There is no evidence of attenuation or tears. The scope was then placed into the lateral compartment where the lateral meniscus was probed throughout its entirety and noted to be intact on both the upper and under surfaces. The femoral condyle and tibial plateau laterally had no chondromalacia or degenerative changes. At this point, the knee was reinspected and copiously irrigated. No further pathology was identified. The instrumentation was removed. The portal sites were closed with interrupted 4-0 nylon suture. The knee was infiltrated with 30 mL of 0.25% Marcaine with epinephrine into the joint and portal sites. Adaptics, 4 x 4's, and a standard postop arthroscopy dressing applied. The patient was transferred to the cart and taken to the recovery room in satisfactory condition, having tolerated the procedure well.
== END 2024-10-17 10:44 | disposition home or self-care (01) ==
LOC: SDC 06:33
PROVIDERS: ATTEND Orthopaedic Surgery
DX: S83.241A Other tear of medial meniscus, current injury, right knee, initial encounter (principal); E11.9 Type 2 diabetes mellitus without complications
CPT/HCPCS: 29881; 82947; J2250; J2371; J2704; J3010; A9270-GY